=== PATIENT | female | born 1975 | race Caucasian/White ===

== ENCOUNTER 2019-02-04 14:47 | Emergency (ER) | payer OTHER ==
--- NOTE | 2019-02-04 14:53 | PDOC ---
Rapid Medical Evaluation Medical Evaluation: 02/04/19 14:50 I have performed a brief in-person evaluation of this patient. The patient presents with a chief complaint of: insect bite to L arm 2 nights ago, subjective fever, BAL[place], denies N/V/D Pertinent physical exam findings: warmth, erythema,tenderness, induration to L upper arm I have ordered the following: labs The patient will proceed to the ED for further evaluation. Discharge Disposition - Diagnosis Cellulitis - Referrals - Patient Instructions - Post Discharge Activity
[2019-02-04 14:56] VITALS: BP 103/72; PULSE 77; TEMP 98; BMI 32.3
[2019-02-04 15:55] LABS: BASO % 0.2 % (0-2.0); EOS % 1.8 % (0-4.5); HEMATOCRIT 37.4 % (32.4-45.2); HEMOGLOBIN 11.8 GM/dL (10.7-15.3); LYMPH % 50.9 % (8-40); MCH 22.5 pg (25.7-33.7); MCHC 31.5 g/dl (32.0-36.0); MEAN CELL VOLUME 71.2 fl (80-96); MONO % 5.8 % (3.8-10.2); NEUT % 41.3 % (42.8-82.8); PLATELET COUNT 253 K/MM3 (134-434); RBC 5.25 M/mm3 (3.60-5.2)
[2019-02-04 16:21] LABS: ALBUMIN 3.6 g/dl (3.4-5.0); BILIRUBIN,TOTAL 0.2 mg/dL (0.2-1); BLOOD UREA NITROGEN 9.3 mg/dL (7-18); CALCIUM 8.8 mg/dL (8.5-10.1); POTASSIUM 3.9 mmol/L (3.5-5.1); TOT PROT 7.1 g/dl (6.4-8.2)
[2019-02-04] MEDS ORDERED: ACETAMINOPHEN 500 MG TABLET (FP) PO ONE (17:34)
[2019-02-04] MEDS ORDERED: CEPHALEXIN MONOHYDRATE 500 MG CAPSULE (UD) PO ONE (17:37)
--- NOTE | 2019-02-04 17:39 | PDOC ---
Attending Attestation - Resident Resident Name: Antony Barker - ED Attending Attestation I have performed the following: I have examined & evaluated the patient, The case was reviewed & discussed with the resident, I agree w/resident's findings & plan, Exceptions are as noted - HPI HPI: 02/04/19 17:37 43 F with no PMH presents to ED with L upper arm redness and swelling. Pt states that 2 nights ago, she got bitten twice by an insect. She does not know what the insect was. Over the past day, she noticed increased redness, swelling , and pain. Denies any drainage. Pt endorses subjective fevers and chills. Denies any other complaints. - Physicial Exam PE: 02/04/19 17:38 "GENERAL: Awake, alert, and fully oriented, in no acute distress. HEAD: No signs of trauma EYES: PERRLA, EOMI, sclera anicteric, conjunctiva clear ENT: Auricles normal inspection, hearing grossly normal, nares patent, oropharynx clear without exudates. Moist mucosa NECK: Nontender, no stepoffs, Normal ROM, supple, no lymphadenopathy, JVD, or masses LUNGS: Breath sounds equal, clear to auscultation bilaterally. No wheezes, and no crackles HEART: Regular rate and rhythm, normal S1 and S2, no murmurs, rubs or gallops ABDOMEN: Soft, nontender, normoactive bowel sounds. No guarding, no rebound. No masses EXTREMITIES: Normal range of motion, no edema. No clubbing or cyanosis. No cords, erythema, or tenderness NEUROLOGICAL: Cranial nerves II through XII intact. 5/5 strength and sensation in all extremities, Normal speech, normal gait, normal cerebellar function SKIN: + 5cm area of induration and erythema with 2 punctate bites on L upper arm , no fluctuance, no drainage - Medical Decision Making 02/04/19 17:38 43 F with cellulitis of L upper arm, possibly superinfected insect bite. Pt with no fever in ED. - labs wnl - Keflex for cellulitis - Wound check in 48 hours Pt is well appearing, with normal vitals. Clinically stable for DC at this time. I discussed the physical exam findings, ancillary test results and final diagnoses with the patient. I answered all of the patient's questions. The patient was satisfied with the care received and felt comfortable with the discharge plan and treatment plan. The patient agrees to follow up with the primary care physician within 24-72 hours.
--- NOTE | 2019-02-04 17:45 | PDOC ---
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 Believes she was bitten by an unknown mosquito while sitting outside. Endorses subjective fevers and chills with diffuse headache. The area of redness as slowly spread and she has observed white discharge from the area. Denies h/o of similar. Has not tried any OTC meds for relief. Medical Hx: - Gastric ulcer, managed with Amoxicillin (not taken in the past several days) and Omeprazole Review of Systems: In addition to that documented in the HPI above, the additional ROS was obtained : Constitutional: Endorses fevers and chills ENMT: Denies sore throat CV: Denies chest pain Resp: Denies SOB GI: Denies vomiting or diarrhea : Denies dysuria, hematuria, or urinary frequency Physical Examination: Constitutional: Well-developed, well-nourished adult female in no acute distress or obvious discomfort. Found supine on hospital hallway stretcher. Head: Normocephalic. No obvious external signs of trauma. Cardiovascular / Chest: Regular rate and regular rhythm. No murmur, rubs, clicks , or gallops. Peripheral pulses: radial pulses full. Respiratory: Breathing unlabored. Equal chest rise and fall. Clear to auscultation bilaterally. No stridor, no wheezing, no rhonchi. Neuro: Alert and oriented x4. Moving all four extremities spontaneously. Skin: Tender and erythematous patch to lateral aspect of the left upper extremity. No central clearing or targetoid lesion. Unable to express purulence. No fluctuance or induration. No streaking. Lymphatics: No axillary lymphadenopathy. Psych: Affect: appropriate. Mood: normal. MDM: *Reviewed vital signs, nursing notes, and prior visit documentation (if available). 43 y/o female presenting with skin lesion suspicious for erysipelas. Low suspicion for MRSA without purulent discharge or other risk factors. Afebrile. Vitals unremarkable for hypotension or tachycardia. Low suspicion for septicemia or necrotizing fasciitis. Ordered Tylenol for headache and Keflex for infection. Marked area. Will prescribe 10 day course of Keflex. Discussed strict return precautions. Encouraged pt to f/u w/ PCP or return to ED in two days for a wound recheck. Antony Barker M.D., PGY2 Emergency Medicine Resident Past History - Past Medical History Allergies/Adverse Reactions: Allergies Allergy/AdvReac Type Severity Reaction Status Date / Time No Known Allergies Allergy Verified 02/04/19 14:56 Home Medications: Ambulatory Orders Cephalexin Monohydrate [Keflex -] 500 mg PO QID 10 Days #40 capsule 02/04/19 COPD: No - Suicide/Smoking/Psychosocial Hx Smoking History: Never smoked Information on smoking cessation initiated: No Hx Alcohol Use: No Drug/Substance Use Hx: No *Physical Exam - Vital Signs Last Vital Signs Temp Pulse Resp BP Pulse Ox 98 F 77 19 103/72 98 02/04/19 14:53 02/04/19 14:53 02/04/19 14:53 02/04/19 14:53 02/04/19 14:53 ED Treatment Course - LABORATORY CBC & Chemistry Diagram: 02/04/19 15:28 02/04/19 15:28 - ADDITIONAL ORDERS Additional order review: Laboratory Results 02/04/19 15:28 Sodium 140 Potassium 3.9 Chloride 103 Carbon Dioxide 28 Anion Gap 9 BUN 9.3 Creatinine 1.0 Est GFR (CKD-EPI)AfAm 81.04 Est GFR (CKD-EPI)NonAf 69.92 Random Glucose 89 Calcium 8.8 Total Bilirubin 0.2 AST 13 L ALT 20 Alkaline Phosphatase 81 Total Protein 7.1 Albumin 3.6 02/04/19 15:28 RBC 5.25 H MCV 71.2 L MCHC 31.5 L RDW 21.0 H MPV 10.0 Neutrophils % 41.3 L Lymphocytes % 50.9 H Monocytes % 5.8 Eosinophils % 1.8 Basophils % 0.2 *DC/Admit/Observation/Transfer Diagnosis at time of Disposition: Erysipelas Cellulitis Qualifiers: Site of cellulitis: extremity Site of cellulitis of extremity: upper extremity Laterality: left Qualified Code(s): L03.114 - Cellulitis of left upper limb - Discharge Dispostion Disposition: HOME Condition at time of disposition: Good Decision to Admit order: No - Prescriptions Prescriptions: Cephalexin Monohydrate [Keflex -] 500 mg PO QID 10 Days #40 capsule - Referrals Schedule a call back: Wound Recheck Referrals: Seth Morris [Primary Care Provider] - - Patient Instructions Printed Discharge Instructions: DI for Erysipelas Additional Instructions: Lo vieron hoy por enrojecimiento y dolor en la parte superior del brazo danny. Es probable que sea aye infeccin de la piel. Le dieron Tylenol y un antibitico en el departamento de emergencias. El saadia fue delineada con el marcador. Si el enrojecimiento se mueve rpidamente fuera del saadia marcada, regrese al hospital lo ms rpido posible. He enviado aye receta para un antibitico llamado Keflex a tsang farmacia. Tmelo samira se indica en el prospecto. No exceda la dosis recomendada. Hoy te dieron aye pldora. [place] eve ms esta noche antes de acostarse. Puede codie Tylenol o Advil de venta ricardo segn sea necesario para el dolor y la fiebre. Tmelo samira se indica en el prospecto. No exceda la dosis recomendada. Camila un seguimiento con tsang mdico de atencin primaria o regrese al departamento de emergencias para volver a revisar el saadia en dos rose. Deber llamar para programar aye don en el consultorio de tsang mdico. Se adjunta aye copia de los resultados de hoy a antony paquete. Llvelo a la don para que tsang mdico pueda revisarlos. Dirjase al departamento de emergencias ms cercano si tsang afeccin empeora o siente que necesita aye evaluacin de emergencia adicional. You were seen today for redness and pain to your upper left arm. This is likely a skin infection. You were given Tylenol and an antibiotic in the emergency department. The area was outlined with the marker. If the redness moves outside of the marked area quickly, come back to the hospital as quickly as possible. I have sent a prescription for an antibiotic called Keflex to your pharmacy. Take as directed on the package insert. Do not exceed the recommended dosage. You were given one pill today. Take one more tonight before bed. You can take over the counter Tylenol or Advil as needed for pain and fever. Take as directed on the package insert. Do not exceed the recommended dosage. Follow up with your primary care doctor or come back to the emergency department to have the area rechecked in two days. You will need to call to make an appointment at your doctors office. A copy of todays results are attached to this packet. Take it to the appointment so your doctor can review them. Go to the nearest emergency department if your condition worsens or you feel like you need additional emergency evaluation. Print Language: MOLDOVAN - Post Discharge Activity Forms/Work/School Notes: Back to Work
[2019-02-04] MEDS ORDERED: ACETAMINOPHEN 325 MG TABLET (FP) ONE (17:51)
[2019-02-04] MEDS ORDERED: CEPHALEXIN MONOHYDRATE 500 MG CAPSULE (UD) ONE (17:52)
[2019-02-04 18:42] LABS: ANISOCYTOSIS 1+; MACROCYTOSIS 0; OVALOCYTE 1+; PLATELET ESTIMATE NORMAL; TEAR DROP CELLS 1+
== END 2019-02-04 18:05 | disposition home or self-care (01) ==
LOC: JER 14:47 → EDBD 14:47 → JER 18:05
DX: A46 Erysipelas (principal); L03.114 Cellulitis of left upper limb
CPT/HCPCS: 36415; 80053; 85025; 99281-25

== ENCOUNTER 2019-05-20 19:11 | Emergency (ER) | payer OTHER ==
[2019-05-20] MEDS ORDERED: diphenhydrAMINE HCL 25 MG CAPSULE (FP) PO ONE ×2 (19:26→20:43)
--- NOTE | 2019-05-20 19:26 | PDOC ---
Rapid Medical Evaluation Medical Evaluation: Allergies Allergy/AdvReac Type Severity Reaction Status Date / Time No Known Allergies Allergy Verified 02/04/19 14:56 I have performed a brief in-person evaluation of this patient. The patient presents with a chief complaint of: itching along LUE and R thigh x 4 days; possibly bit by something but not sure what Pertinent physical exam findings: +L upper arm erythema and warmth; no induration or fluctuance; R thigh not examined in triage I have ordered the following: Benadryl The patient will proceed to the ED for further evaluation. 05/20/19 19:23
[2019-05-20 19:52] VITALS: BP 115/67; PULSE 85; TEMP 97.4; BMI 33.9
[2019-05-20] MEDS ORDERED: IBUPROFEN 600 MG TABLET (FP) PO ONE ×2 (20:47→20:48)
[2019-05-20] MEDS ORDERED: SULFAMETHOXAZOLE/TRIMETHOPRIM 800MG/160MG D.S. TABLET PO ONE (20:48)
[2019-05-20] MEDS ORDERED: CEPHALEXIN MONOHYDRATE 500 MG CAPSULE (UD) PO ONE (20:48)
[2019-05-20] MEDS ORDERED: CEPHALEXIN MONOHYDRATE 500 MG CAPSULE (UD) ONE (20:49)
[2019-05-20] MEDS ORDERED: SULFAMETHOXAZOLE/TRIMETHOPRIM 800MG/160MG D.S. TABLET ONE (20:49)
--- NOTE | 2019-05-20 20:53 | PDOC ---
History of Present Illness - General Chief Complaint: Bite Stated Complaint: LEFT ARM DISCOMFORT/EVALUATION Time Seen by Provider: 05/20/19 19:23 - History of Present Illness Initial Comments: 05/20/19 20:48 43-year-old female without comorbidities presents for left arm redness x2 days with out fever at home but chills and night sweats at times Past History - Past Medical History Allergies/Adverse Reactions: Allergies Allergy/AdvReac Type Severity Reaction Status Date / Time No Known Allergies Allergy Verified 02/04/19 14:56 Home Medications: Ambulatory Orders Cephalexin Monohydrate [Keflex -] 500 mg PO QID 10 Days #40 capsule 02/04/19 Cephalexin [Keflex] 500 mg PO QID #40 capsule 05/20/19 Sulfamethoxazole/Trimethoprim [Bactrim Ds -] 1 tab PO BID #14 tablet 05/20/19 COPD: No - Psycho Social/Smoking Cessation Hx Smoking History: Never smoked Have you smoked in the past 12 months: No Information on smoking cessation initiated: No Hx Alcohol Use: No Drug/Substance Use Hx: No Review of Systems - Review of Systems Constitutional: Yes: Chills, Malaise, Night Sweats. No: Fever Integumentary: Yes: Erythema *Physical Exam - Vital Signs Last Vital Signs Temp Pulse Resp BP Pulse Ox 97.4 F L 85 17 115/67 98 05/20/19 19:15 05/20/19 19:15 05/20/19 19:15 05/20/19 19:15 05/20/19 19:15 - Physical Exam 05/20/19 20:49 There is erythema and induration on the superior lateral aspect of the left upper extremity. The area was outlined. There is no areas of fluctuance. Mild sensitivity ED Treatment Course - Medications Given in the ED: ED Medications Discontinued Medications Generic Name Dose Route Start Last Admin Trade Name Freq PRN Reason Stop Dose Admin Diphenhydramine HCl 50 mg 05/20/19 19:26 05/20/19 20:40 Benadryl - PO 05/20/19 19:27 50 mg ONCE ONE Administration Medical Decision Making - Medical Decision Making 05/20/19 20:52 We will treat with Bactrim and Keflex. First dose given in the emergency room tonight Motrin for pain. Follow-up with primary care physician Discharge - Discharge Information Problems reviewed: Yes Clinical Impression/Diagnosis: Cellulitis Condition: Stable Disposition: HOME - Admission No - Additional Discharge Information Prescriptions: Cephalexin [Keflex] 500 mg PO QID #40 capsule Sulfamethoxazole/Trimethoprim [Bactrim Ds -] 1 tab PO BID #14 tablet - Follow up/Referral Referrals: Jerry Viera MD [Staff Physician] - - Patient Discharge Instructions Patient Printed Discharge Instructions: Cellulitis, DI for Cellulitis -- Adult Additional Instructions: Tylenol and Motrin as directed for pain. Please take the antibiotics as directed and finish the entire course. Return to the emergency room for any redness outside the outlined areas. Follow-up with your primary care physician in 2 to 3 days for further evaluation and treatment options without fail. - Post Discharge Activity
== END 2019-05-20 21:16 | disposition home or self-care (01) ==
LOC: JERFT 19:11
DX: L03.114 Cellulitis of left upper limb (principal)
CPT/HCPCS: 99281-25

== ENCOUNTER 2019-06-07 18:06 | Emergency (ER) | payer OTHER ==
[2019-06-07 19:31] VITALS: BP 106/77; PULSE 69; TEMP 98.8; BMI 19.8
--- NOTE | 2019-06-07 21:08 | PDOC ---
History of Present Illness - General Chief Complaint: Cold Symptoms Stated Complaint: Cold Symptoms Time Seen by Provider: 06/07/19 20:37 History Source: Patient Exam Limitations: No Limitations - History of Present Illness Initial Comments: 06/07/19 21:03 HISTORY OF PRESENT ILLNESS: 43-year-old woman who denies medical history presents emergency department for evaluation of 2 days of fevers, chills, headache, moist cough, sore throat, body aches and burning sensation behind her eyes. She denies any sick contacts. Patient works as a cook in a restaurant and states other people are not experiencing symptoms. Patient is afebrile here but took Tylenol prior to arrival. No recent travel or sick contacts. PAST MEDICAL HISTORY: Denies past medical history SURGICAL HISTORY: Denies ALLERGIES: No known drug allergies REVIEW OF SYSTEMS General/Constitutional: +fever. Denies weakness, weight change. HEENT: Denies change in vision. Denies ear pain or discharge. +sore throat. Cardiovascular: Denies chest pain or shortness of breath. Respiratory: Moist productive cough. Denies wheezing, or hemoptysis. Gastrointestinal: Denies nausea, vomiting, diarrhea or constipation. Denies rectal bleeding. Genitourinary: Denies dysuria, frequency, or change in urination. Musculoskeletal: +myalgias. Denies neck or back pain. Skin and breasts: Denies rash or easy bruising. Neurologic: Denies headache, vertigo, loss of consciousness, or loss of sensation. Psychiatric: Denies depression or anxiety. Endocrine: Denies increased thirst. Denies abnormal weight change. Hematologic/Lymphatic: Denies anemia, easy bleeding, or history of blood clots. Allergic/Immunologic: Denies hives or skin allergy. Denies latex allergy. PHYSICAL EXAM General Appearance: Well-appearing, appropriately dressed. No apparent distress , no intoxication. HEENT: EOMI, PERRLA, normal voice, TMs retracted bilaterally. No conjunctival pallor. No photophobia, scleral icterus. Oropharynx erythematous without lesions or exudate. Cobblestoning noted in the posterior. No nasal discharge present. Neck: Supple. Trachea midline. No tenderness, rigidity, carotid bruit, stridor , or thyromegaly. Nontender anterior cervical lymphadenopathy present. Respiratory/Chest: Lungs CTAB. No shortness of breath, chest tenderness, respiratory distress, accessory muscle use. No crackles, rales, rhonchi, stridor , wheezing, dullness Cardiovascular: RRR. S1, S2. No JVD, murmur, bradycardia, tachycardia. Vascular Pulses: Dorsalis-Pedis (R): 2+, Dorsalis-Pedis (L): 2+ Gastrointestinal/Abdominal: Normal bowel sounds. Abdomen soft, non-distended. No tenderness or rebound tenderness. No organomegaly, pulsatile mass, guarding, hernia, hepatomegaly, splenomegaly. Musculoskeletal/Extremities: Normal inspection. FROM of all extremities, normal capillary refill. Pelvis Stable. No CVA tenderness. No tenderness to extremities, pedal edema, swelling, erythema or deformity. Integumentary: Appropriate color, dry, warm. No cyanosis, erythema, jaundice or rash Neurologic: hot pipe gauger II-XII intact. Fully oriented, alert. Appropriate mood/affect. Motor strength 5/5. No appreciable EOM palsy, facial droop or sensory deficit. 06/07/19 21:07 Past History - Past Medical History Allergies/Adverse Reactions: Allergies Allergy/AdvReac Type Severity Reaction Status Date / Time No Known Allergies Allergy Verified 06/07/19 20:33 Home Medications: Ambulatory Orders Cephalexin Monohydrate [Keflex -] 500 mg PO QID 10 Days #40 capsule 02/04/19 Cephalexin [Keflex] 500 mg PO QID #40 capsule 05/20/19 Sulfamethoxazole/Trimethoprim [Bactrim Ds -] 1 tab PO BID #14 tablet 05/20/19 Oseltamivir Phosphate [Tamiflu -] 75 mg PO BID #10 capsule 06/07/19 COPD: No - Psycho Social/Smoking Cessation Hx Smoking History: Never smoked Have you smoked in the past 12 months: No Information on smoking cessation initiated: No Hx Alcohol Use: No Drug/Substance Use Hx: No *Physical Exam - Vital Signs Last Vital Signs Temp Pulse Resp BP Pulse Ox 98.8 F 69 17 106/77 100 06/07/19 19:22 06/07/19 19:22 06/07/19 19:22 06/07/19 19:22 06/07/19 19:22 Medical Decision Making - Medical Decision Making 06/07/19 21:04 A/P: 43-year-old woman with 2 days of flulike symptoms As physical exam is consistent with influenza I have offered potential treatment of influenza to patient. Side effects of Tamiflu been explained to the patient and patient chooses to receive Tamiflu treatment. I discussed the physical exam findings, ancillary test results and final diagnoses with the patient. I answered all of the patient's questions. The patient was satisfied with the care received and felt comfortable with the discharge plan and treatment plan. The patient will call their primary care physician within 24 hours to arrange follow-up and will return to the Emergency Department with any new, persistent or worsening symptoms. Discharge - Discharge Information Problems reviewed: Yes Clinical Impression/Diagnosis: Influenza-like illness Condition: Stable Disposition: HOME - Admission No - Additional Discharge Information Prescriptions: Oseltamivir Phosphate [Tamiflu -] 75 mg PO BID #10 capsule - Follow up/Referral Referrals: Seth Morris [Primary Care Provider] - - Patient Discharge Instructions Additional Instructions: Rest, drink lots of fluids: Teas, water, soups, Pedialyte Saltwater gargles Steamy showers/seem to face break up mucus Old-fashioned treatments help! Avoid contact with others until fevers and cough resolved as this is very contagious Lots of handwashing and good hygiene Continue pejo-iqh-jeulerc medications for symptomatic relief Tylenol or Motrin for fever and pain Take all of Tamiflu as directed: 1 tab every 12 hours for 5 days Followup with private physician in one to 2 days as needed or if worsening Return to emergency department for worsened symptoms, fevers, dehydration Influenza takes between 5 and 7 days for resolution Do not participate in any activity, work, or school until fevers and cough are gone for at least one day Descaishaarbenjamin muchos lquidos: ts, agua, sopas, pedialyte Gargles de agua salada Duchas vaporosas/parecen enfrentar la ruptura de moco Los tratamientos anticuados ayudan! Evite el contacto con otras personas hasta que la fiebre y la tos se resuelvan, ya que esto es muy contagioso Mucho lavado de vikash y buena higiene Continuar con los medicamentos de venta ricardo para aliviar sintomticamente Tylenol o Motrin para la fiebre y el dolor [place] toda Tamiflu samira se indica: 1 pestaa cada 12 horas raulito 5 rose Seguimiento con el mdico privado en eve a 2 rose segn sea necesario o si empeora Regreso al servicio de urgencias para empeorar los sntomas, fiebres, deshidratacin La gripe tarda entre 5 y 7 rose en resolverse No participe en ninguna actividad, trabajo o escuela hasta que la fiebre y la tos se hayan maryanne por lo menos un da - Post Discharge Activity Work/Back to School Note: Back to Work
== END 2019-06-07 21:12 | disposition home or self-care (01) ==
LOC: JERFT 18:06
DX: J11.1 Influenza due to unidentified influenza virus with other respiratory manifestations (principal)
CPT/HCPCS: 99282-25

== ENCOUNTER 2019-07-04 19:54 | Emergency (ER) | payer OTHER ==
[2019-07-04 20:00] VITALS: BP 127/79; PULSE 78; TEMP 98.3; BMI 33.9
--- NOTE | 2019-07-04 20:00 | PDOC ---
Rapid Medical Evaluation Time Seen by Provider: 07/04/19 19:58 Medical Evaluation: Allergies Allergy/AdvReac Type Severity Reaction Status Date / Time No Known Allergies Allergy Verified 06/07/19 20:33 07/04/19 19:59 CC: lower abdominal pain with vaginal d/c. LMP-06/12/19 PE: deferred Orders: urine Patient will proceed to ED for continued evaluation. 07/04/19 20:00 Discharge Disposition - Diagnosis Vaginal discharge - Referrals - Patient Instructions - Post Discharge Activity
--- NOTE | 2019-07-04 22:13 | PDOC ---
History of Present Illness - General Chief Complaint: Vaginal Sxs Stated Complaint: LOWER ABD/PAIN Time Seen by Provider: 07/04/19 19:58 History Source: Patient - History of Present Illness Initial Comments: 07/04/19 22:36 Chief complaint: Vaginal discharge and pelvic pain Patient is a healthy 43-year-old female, who is had 4 children is complaining of a week of pelvic pain and vaginal discharge. No fever, no dysuria. Patient is sexually active with her . Patient saw her side stitcher in May because of her instruction is supposed to follow-up in July. GENERAL/CONSTITUTIONAL: No fever, weakness. dizziness HEAD, EYES, EARS, NOSE AND THROAT: No change in vision. No ear pain or discharge. No sore throat. CARDIOVASCULAR: No chest pain RESPIRATORY: No shortness of breath or cough GASTROINTESTINAL: No pain, nausea, vomiting, diarrhea or constipation GENITOURINARY: No dysuria, + vaginal discharge and pelvic pain MUSCULOSKELETAL: No neck or back pain SKIN: No rash NEUROLOGIC: No headache, vertigo, loss of consciousness, or loss of sensation. GENERAL: The patient is awake, alert, and fully oriented, in no acute distress. HEAD: Normal with no signs of trauma. EYES: Pupils equal, round and reactive to light, sclera anicteric, conjunctiva clear. ENT: pharynx: no erythema, no exudate, uvula midline NECK: supple CHEST: clear, nontender, rr ABD: soft, +pelvic tenderness PELVIC: External exam normal, some white discharge, very nonspecific, non-itchy in the vagina, patient has no CMT but has suprapubic and right adnexal tenderness. BACK: no tenderness or signs of injury EXTREMITIES: Normal range of motion, no edema. NEUROLOGICAL: Normal speech, normal gait. SKIN: Warm, Dry Past History - Past Medical History Allergies/Adverse Reactions: Allergies Allergy/AdvReac Type Severity Reaction Status Date / Time No Known Allergies Allergy Verified 07/04/19 20:00 Home Medications: Ambulatory Orders Cephalexin Monohydrate [Keflex -] 500 mg PO QID 10 Days #40 capsule 02/04/19 Cephalexin [Keflex] 500 mg PO QID #40 capsule 05/20/19 Sulfamethoxazole/Trimethoprim [Bactrim Ds -] 1 tab PO BID #14 tablet 05/20/19 Oseltamivir Phosphate [Tamiflu -] 75 mg PO BID #10 capsule 06/07/19 COPD: No - Psycho Social/Smoking Cessation Hx Smoking History: Never smoked Have you smoked in the past 12 months: No Hx Alcohol Use: No Drug/Substance Use Hx: No *Physical Exam - Vital Signs Last Vital Signs Temp Pulse Resp BP Pulse Ox 98.3 F 78 18 127/79 99 07/04/19 19:57 07/04/19 19:57 07/04/19 19:57 07/04/19 19:57 07/04/19 19:57 Medical Decision Making - Medical Decision Making 07/04/19 22:41 43-year-old female complaining of vaginal discharge and pelvic pain for 1 week, no dysuria, fever, nausea, vomiting, patient states she had a normal. Towards the end of May. She also saw her side stitcher regarding her period in May and supposed to have a follow-up in July. Patient did not have CMT but she had suprapubic and right adnexal tenderness. UA was negative, is negative. STDs were sent. Patient will get ultrasound to be reassessed. Patient signed out to LAYO Vega 07/04/19 22:42 Discharge - Discharge Information Problems reviewed: Yes Clinical Impression/Diagnosis: Vaginal discharge Condition: Stable Disposition: HOME - Follow up/Referral Referrals: Verenice Rivera [Primary Care Provider] - - Patient Discharge Instructions Patient Printed Discharge Instructions: DI for Ovarian Cyst, DI for Vaginal Discharge Additional Instructions: Please call your INFECTION CONTROL PRACTITIONER doctor in the morning and see them as soon as possible, present the Ultrasound report to the Doctor. Return to the ER for new or concerning symptoms including but not limited to: severe pain, bloody vaginal discharge. Continue taking your home dosed medications as prescribed. Thank you - Post Discharge Activity
[2019-07-04 22:34] LABS: URINE APPEARANCE CLEAR; URINE BILIRUBIN NEGATIVE (NEGATIVE); URINE COLOR YELLOW; URINE GLUCOSE (UA) NEGATIVE (NEGATIVE); URINE KETONE NEGATIVE (NEGATIVE); URINE LEUK ESTERASE NEGATIVE (NEGATIVE); URINE NITRITE NEGATIVE (NEGATIVE); URINE PROTEIN NEGATIVE (NEGATIVE); URINE UROBILINOGEN 0.2 mg/dL (0.2-1.0)
--- NOTE | 2019-07-05 03:47 | PDOC ---
*Physical Exam - Vital Signs Last Vital Signs Temp Pulse Resp BP Pulse Ox 98.3 F 78 18 127/79 99 07/04/19 19:57 07/04/19 19:57 07/04/19 19:57 07/04/19 19:57 07/04/19 19:57 ED Treatment Course - ADDITIONAL ORDERS Additional order review: Laboratory Results 07/04/19 07/04/19 22:20 22:20 Urine Color Yellow Urine Appearance Clear Urine pH 7.0 Ur Specific Benson 1.015 Urine Protein Negative Urine Glucose (UA) Negative Urine Ketones Negative Urine Blood Negative Urine Nitrite Negative Urine Bilirubin Negative Urine Urobilinogen 0.2 Ur Leukocyte Esterase Negative Urine HCG, Qual Negative Medical Decision Making - Medical Decision Making 07/05/19 03:36 Pt not signed out to me or attending in the main ED. Pt apparently a fast track pt Pt came up to main desk stating no one gave her results of imaging. Dr. Mckeon and I investigated chart through pt wrist band with the MRN, found note: (43-year-old female complaining of vaginal discharge and pelvic pain for 1 week , no dysuria, fever, nausea, vomiting, patient states she had a normal. Towards the end of May. She also saw her fire protection engineer regarding her period in May and supposed to have a follow-up in July. Patient did not have CMT but she had suprapubic and right adnexal tenderness. UA was negative, is negative. STDs were sent. Patient will get ultrasound to be reassessed. Patient signed out to LAYO Vega) Imaging done showing possible complex cyst that may require MRI UA neg, pending gc/chlam Resident Thomas Discussed case with Dr. Durand in full, tubular riveter warp tension tester, states pt is safe for DC with outpatient f/u pt has OB and will call to make an appointment Discharge - Discharge Information Problems reviewed: Yes Clinical Impression/Diagnosis: Vaginal discharge Condition: Stable Disposition: HOME - Admission No - Follow up/Referral Referrals: Verenice Rivera [Primary Care Provider] - - Patient Discharge Instructions Patient Printed Discharge Instructions: DI for Vaginal Discharge, DI for Ovarian Cyst Additional Instructions: Please call your POLICE CRIME SCENE TECHNICIAN doctor in the morning and see them as soon as possible, present the Ultrasound report to the Doctor. Return to the ER for new or concerning symptoms including but not limited to: severe pain, bloody vaginal discharge. Continue taking your home dosed medications as prescribed. Thank you - Post Discharge Activity
== END 2019-07-06 04:00 | disposition home or self-care (01) ==
LOC: JERFT 19:54
DX: N89.8 Other specified noninflammatory disorders of vagina (principal); N83.201 Unspecified ovarian cyst, right side; D25.9 Leiomyoma of uterus, unspecified
CPT/HCPCS: 36415; 76830-TC; 81003; 84703; 87086; 87491; 87591; 99284-25

== ENCOUNTER 2020-07-17 02:21 | Emergency (ER) | payer OTHER ==
[2020-07-17 03:13] VITALS: BMI 37.8
[2020-07-17] MEDS ORDERED: ACETAMINOPHEN 325 MG TABLET (FP) PO ONE (03:33)
[2020-07-17] MEDS ORDERED: ACETAMINOPHEN 325 MG TABLET (FP) ONE (03:42)
[2020-07-17 04:29] LABS: CHLORIDE 108 mmol/L (98-107); INR 0.93 (0.83-1.09); POTASSIUM 4.4 mmol/L (3.5-5.1); PROTHROMBIN TIME (PATIENT) 11.5 SEC (9.7-13.0); SODIUM 143 mmol/L (136-145)
[2020-07-17 04:31] LABS: ALBUMIN 3.6 g/dl (3.4-5.0); ANION GAP 6 MMOL/L (8-16); BLOOD UREA NITROGEN 14.2 mg/dL (7-18); CALCIUM 8.6 mg/dL (8.5-10.1); CO2 28 mmol/L (21-32); GLUCOSE,RANDOM 105 mg/dL (74-106)
[2020-07-17 04:32] LABS: ACTIVATED PTT 23.1 SECONDS (25.2-36.5)
[2020-07-17 04:34] LABS: SGOT/AST 13 U/L (15-37); SGPT/ALT 23 U/L (13-61)
[2020-07-17 04:35] LABS: BASO % 1.1 % (0-2.0); EOS % 0.9 % (0-4.5); HEMATOCRIT 39.9 % (32.4-45.2); HEMOGLOBIN 13.1 GM/dL (10.7-15.3); LYMPH % 44.2 % (8-40); MCH 25.7 pg (25.7-33.7); MCHC 32.9 g/dl (32.0-36.0); MEAN PLT VOLUME 10.2 fl (7.5-11.1); MONO % 5.9 % (3.8-10.2); NEUT % 47.9 % (42.8-82.8); PLATELET COUNT 210 K/MM3 (134-434); RBC 5.12 M/mm3 (3.60-5.2); RDW 16.3 % (11.6-15.6); WHITE BLOOD COUNT 7.1 K/mm3 (4.0-10.0)
[2020-07-17 04:36] LABS: BILIRUBIN,TOTAL 0.2 mg/dL (0.2-1); TOT PROT 7.3 g/dl (6.4-8.2)
[2020-07-17 04:37] LABS: ALK PHOS 83 U/L (45-117)
[2020-07-17] MEDS ORDERED: FAMOTIDINE 20 MG/50 ML IVPB 20 MG/50 ML MG IVPB ONE ×2 (05:04→05:11)
[2020-07-17] MEDS ORDERED: MAG HYDROX/AL HYDROX/SIMETH 30 ML UNIT-DOSE CUP PO ONE (05:05)
[2020-07-17] MEDS ORDERED: MAG HYDROX/AL HYDROX/SIMETH 30 ML UNIT-DOSE CUP ONE (05:11)
[2020-07-17] MEDS ORDERED: LIDOCAINE 5% TOPICAL PATCH TP ONE (05:26)
[2020-07-17] MEDS ORDERED: LIDOCAINE 5% TOPICAL PATCH ONE (05:27)
[2020-07-17] MEDS ORDERED: METOCLOPRAMIDE HCL INJECTION 10 MG/2 ML VIAL ONE (06:01)
[2020-07-17] MEDS ORDERED: METOCLOPRAMIDE HCL INJECTION 10 MG/2 ML VIAL IVPB ONE (06:07)
[2020-07-17 06:55] VITALS: BP 105/67; PULSE 69; TEMP 98.6
[2020-07-17] MEDS ORDERED: LIDOCAINE PATCH REMOVAL MC SCH (22:00)
== END 2020-07-17 06:55 | disposition home or self-care (01) ==
LOC: JER 02:21
PROC: 3E033GC Introduction of Other Therapeutic Substance into Peripheral Vein, Percutaneous Approach (ICD-10-PCS; principal; 2020-07-17)
DX: R07.9 Chest pain, unspecified (principal)
CPT/HCPCS: 36415; 71045-TC-FY; 80053; 84484; 84703; 85025; 85610; 85730; 87880; 93005; 93010; 99285-25; C9803; U0003

== ENCOUNTER 2020-10-01 02:28 | Emergency (ER) | payer OTHER ==
[2020-10-01 03:00] VITALS: BP 134/87; PULSE 76; TEMP 98.2; BMI 33.0
[2020-10-01] MEDS ORDERED: ACETAMINOPHEN 500 MG TABLET (FP) PO ONE (03:24)
[2020-10-01] MEDS ORDERED: ACETAMINOPHEN 325 MG TABLET (FP) ONE (03:54)
[2020-10-01 05:12] LABS: EOS % 1.5 % (0-4.5); HEMATOCRIT 36.2 % (32.4-45.2); LYMPH % 48.9 % (8-40); MCH 25.8 pg (25.7-33.7); MEAN CELL VOLUME 78.4 fl (80-96); MEAN PLT VOLUME 9.3 fl (7.5-11.1); MONO % 8.2 % (3.8-10.2); NEUT % 40.4 % (42.8-82.8); PLATELET COUNT 220 K/MM3 (134-434); RBC 4.63 M/mm3 (3.60-5.2); RDW 15.1 % (11.6-15.6); WHITE BLOOD COUNT 5.4 K/mm3 (4.0-10.0)
[2020-10-01 05:21] LABS: INR 1.06 (0.83-1.09); PROTHROMBIN TIME (PATIENT) 12.8 SEC (9.7-13.0)
[2020-10-01 05:23] LABS: ACTIVATED PTT 28.3 SECONDS (25.2-36.5)
[2020-10-01 05:25] LABS: CO2 29 mmol/L (21-32)
[2020-10-01 05:26] LABS: MAGNESIUM 1.9 mg/dL (1.8-2.4)
[2020-10-01 05:28] LABS: SGOT/AST 12 U/L (15-37); SGPT/ALT 20 U/L (13-61)
[2020-10-01 05:29] LABS: PHOSPHOROUS 3.8 mg/dL (2.5-4.9)
[2020-10-01 05:30] LABS: BILIRUBIN,TOTAL 0.2 mg/dL (0.2-1)
[2020-10-01 05:31] LABS: ALK PHOS 69 U/L (45-117)
[2020-10-01 05:31] LABS: EPI CELLS 20 /uL (0-25.1); HYALINE CASTS 0 /uL (0-3.1); PH,URINE 7.5 (5.0-8.0); URINE APPEARANCE CLEAR; URINE BACTERIA 1157 /uL (0-1359); URINE BILIRUBIN NEGATIVE (NEGATIVE); URINE COLOR YELLOW; URINE GLUCOSE (UA) NEGATIVE (NEGATIVE); URINE KETONE NEGATIVE (NEGATIVE); URINE LEUK ESTERASE NEGATIVE (NEGATIVE); URINE NITRITE NEGATIVE (NEGATIVE); URINE PROTEIN NEGATIVE (NEGATIVE); URINE RBC 5 /uL (0-23.9); URINE UROBILINOGEN 0.2 mg/dL (0.2-1.0); URINE WBC 14 /uL (0-25.8)
[2020-10-01 06:00] LABS: ALBUMIN 3.5 g/dl (3.4-5.0); ANION GAP 5 MMOL/L (8-16); CALCIUM 8.3 mg/dL (8.5-10.1); CHLORIDE 107 mmol/L (98-107); GLUCOSE,RANDOM 88 mg/dL (74-106); SODIUM 141 mmol/L (136-145); TOT PROT 6.8 g/dl (6.4-8.2)
== END 2020-10-01 10:06 | disposition home or self-care (01) ==
LOC: JER 02:28
DX: S20.219A Contusion of unspecified front wall of thorax, initial encounter (principal)
CPT/HCPCS: 36415; 70450-TC; 71260-TC; 72125-TC; 74177-TC; 80053; 81003; 82550; 83605; 83735; 84100; 84484; 84703; 85025; 85610; 85730; 87086; 93005; 93010; 99285-25; C9803; Q9967; U0003; U0005

== ENCOUNTER 2021-05-12 01:33 | Emergency (ER) | payer OTHER ==
[2021-05-12 02:12] VITALS: BP 115/77; PULSE 98; TEMP 98.6; BMI 39.9
[2021-05-12] MEDS ORDERED: ACETAMINOPHEN 500 MG TABLET (FP) PO ONE (02:16)
[2021-05-12] MEDS ORDERED: ACETAMINOPHEN 325 MG TABLET (FP) ONE (02:40)
[2021-05-15 13:07] LABS: SARS-CoV-2 NAA Detected (Not Detected)
== END 2021-05-12 04:46 | disposition home or self-care (01) ==
LOC: JER 01:33
DX: R51.9 Headache, unspecified (principal); M79.10 Myalgia, unspecified site
CPT/HCPCS: 87804; 99283-25; C9803-CS; U0003; U0005

== ENCOUNTER 2022-01-16 20:34 | Emergency (ER) | payer OTHER ==
[2022-01-16 20:52] VITALS: BP 111/79; PULSE 73; RESP 19; TEMP 98; BMI 32.3
[2022-01-16] MEDS ORDERED: CEPHALEXIN MONOHYDRATE 500 MG CAPSULE (UD) PO ONE (22:25)
[2022-01-16] MEDS ORDERED: diphenhydrAMINE HCL 25 MG CAPSULE (FP) PO ONE ×2 (22:25→22:28)
[2022-01-16] MEDS ORDERED: CEPHALEXIN MONOHYDRATE 500 MG CAPSULE (UD) ONE (22:28)
== END 2022-01-16 22:46 | disposition home or self-care (01) ==
LOC: JERFT 20:34
DX: L03.116 Cellulitis of left lower limb (principal)
CPT/HCPCS: 99283-25

== ENCOUNTER 2022-03-10 23:23 | Emergency (ER) | payer OTHER ==
[2022-03-10 23:31] VITALS: BP 102/60; PULSE 65; RESP 17; TEMP 98.4; BMI 34.7
[2022-03-11] MEDS ORDERED: KETOROLAC TROMETHAMINE 15 MG/ML VIAL IVPUSH ONE (01:34)
[2022-03-11 02:06] LABS: EOS % 1.4 % (0-4.5); HEMOGLOBIN 12.4 GM/dL (10.7-15.3); LYMPH % 43.6 % (8-40); MCH 25.2 pg (25.7-33.7); MCHC 32.6 g/dl (32.0-36.0); MEAN CELL VOLUME 77.4 fl (80-96); MEAN PLT VOLUME 9.1 fl (7.5-11.1); MONO % 5.7 % (3.8-10.2); NEUT % 48.3 % (42.8-82.8); PLATELET COUNT 254 10^3/uL (134-434); RBC 4.91 M/mm3 (3.60-5.2); RDW 15.8 % (11.6-15.6); WHITE BLOOD COUNT 5.3 K/mm3 (4.0-10.0)
[2022-03-11] MEDS ORDERED: KETOROLAC TROMETHAMINE 15 MG/ML VIAL ONE (02:10)
[2022-03-11 02:34] LABS: SODIUM 143 mmol/L (136-145)
[2022-03-11 02:35] LABS: ALBUMIN 3.6 g/dl (3.4-5.0); CALCIUM 9.3 mg/dL (8.5-10.1); CO2 29 mmol/L (21-32); GLUCOSE,RANDOM 100 mg/dL (74-106)
[2022-03-11 02:37] LABS: BLOOD UREA NITROGEN 17.2 mg/dL (7-18)
[2022-03-11 02:39] LABS: CREATININE 0.9 mg/dL (0.55-1.3); SGOT/AST 18 U/L (15-37)
[2022-03-11 02:40] LABS: SGPT/ALT 23 U/L (13-61)
[2022-03-11 02:41] LABS: BILIRUBIN,TOTAL 0.2 mg/dL (0.2-1); TOT PROT 7.1 g/dl (6.4-8.2)
[2022-03-11 02:42] LABS: ALK PHOS 71 U/L (45-117)
[2022-03-11 03:26] LABS: ANION GAP 6 MMOL/L (8-16); CHLORIDE 107 mmol/L (98-107)
== END 2022-03-11 03:34 | disposition home or self-care (01) ==
LOC: JER 23:23
PROC: 3E033GC Introduction of Other Therapeutic Substance into Peripheral Vein, Percutaneous Approach (ICD-10-PCS; principal; 2022-03-10)
DX: R07.9 Chest pain, unspecified (principal)
CPT/HCPCS: 36415; 71046-TC-FY; 80053; 84484; 84703; 85025; 93005; 93010; 99285-25

== ENCOUNTER 2022-05-13 23:21 | Emergency (ER) | payer OTHER ==
[2022-05-13 23:51] VITALS: BP 124/71; PULSE 74; RESP 18; TEMP 98.7; BMI 34.7
[2022-05-14] MEDS ORDERED: LORazepam 2 MG TABLET PO ONE (00:15)
[2022-05-14] MEDS ORDERED: ACETAMINOPHEN 325 MG TABLET (FP) PO ONE (00:28)
[2022-05-14] MEDS ORDERED: IBUPROFEN 600 MG TABLET (FP) PO ONE ×2 (00:28→00:34)
[2022-05-14] MEDS ORDERED: ACETAMINOPHEN 325 MG TABLET (FP) ONE (00:35)
[2022-05-14] MEDS ORDERED: LIDOCAINE 5% TOPICAL PATCH TP ONE (00:36)
[2022-05-14] MEDS ORDERED: LIDOCAINE 5% TOPICAL PATCH ONE (00:38)
[2022-05-14] MEDS ORDERED: LIDOCAINE PATCH REMOVAL MC ONE (13:00)
== END 2022-05-14 04:28 | disposition home or self-care (01) ==
LOC: JER 23:21
DX: M19.071 Primary osteoarthritis, right ankle and foot (principal)
CPT/HCPCS: 73564-TC-RT-FY; 73610-TC-RT-FY; 73630-TC-RT-FY; 99284-25

== ENCOUNTER 2022-07-17 16:50 | Emergency (ER) | payer OTHER ==
[2022-07-17 16:58] VITALS: RESP 18; TEMP 97.7; BMI 40.3
[2022-07-17 18:48] LABS: BASO % 1.2 % (0-2.0); EOS % 1.4 % (0-4.5); HEMATOCRIT 37.8 % (32.4-45.2); HEMOGLOBIN 12.2 GM/dL (10.7-15.3); LYMPH % 47.9 % (8-40); MCH 24.5 pg (25.7-33.7); MCHC 32.4 g/dl (32.0-36.0); MEAN CELL VOLUME 75.6 fl (80-96); MEAN PLT VOLUME 9.1 fl (7.5-11.1); MONO % 5.2 % (3.8-10.2); NEUT % 44.3 % (42.8-82.8); PLATELET COUNT 276 10^3/uL (134-434); RDW 15.1 % (11.6-15.6); WHITE BLOOD COUNT 4.6 K/mm3 (4.0-10.0)
[2022-07-17 19:10] LABS: ALBUMIN 3.7 g/dl (3.4-5.0); BLOOD UREA NITROGEN 10.4 mg/dL (7-18); CO2 29 mmol/L (21-32); GLUCOSE,RANDOM 93 mg/dL (74-106)
[2022-07-17 19:11] LABS: ANION GAP 6 MMOL/L (8-16); CHLORIDE 106 mmol/L (98-107); SODIUM 141 mmol/L (136-145)
[2022-07-17 19:14] LABS: CREATININE 0.8 mg/dL (0.55-1.3); SGOT/AST 20 U/L (15-37); SGPT/ALT 25 U/L (13-61)
[2022-07-17 19:15] LABS: BILIRUBIN,TOTAL 0.3 mg/dL (0.2-1)
[2022-07-17 19:16] LABS: ALK PHOS 70 U/L (45-117); TOT PROT 7.3 g/dl (6.4-8.2)
[2022-07-17 19:58] VITALS: BP 108/60; PULSE 64
== END 2022-07-17 22:08 | disposition home or self-care (01) ==
LOC: JER 16:50
DX: R07.9 Chest pain, unspecified (principal)
CPT/HCPCS: 36415; 71046-TC-FY; 80053; 84484; 84702; 85025; 93005; 93010; 99285-25

== ENCOUNTER 2023-06-12 20:34 | Emergency (ER) | payer OTHER ==
[2023-06-12 20:39] VITALS: BP 129/86; PULSE 102; RESP 20; TEMP 99.1; BMI 35.2
[2023-06-12] MEDS ORDERED: KETOROLAC TROMETHAMINE 30 MG/1 ML VIAL IM ONE (21:31)
[2023-06-12] MEDS ORDERED: ACETAMINOPHEN 500 MG TABLET (FP) PO ONE (21:31)
[2023-06-12] MEDS ORDERED: ACETAMINOPHEN 500 MG TABLET (FP) ONE (21:34)
[2023-06-12] MEDS ORDERED: KETOROLAC TROMETHAMINE 30 MG/1 ML VIAL ONE (21:34)
== END 2023-06-12 22:54 | disposition home or self-care (01) ==
LOC: JERFT 20:34
PROC: 3E0233Z Introduction of Anti-inflammatory into Muscle, Percutaneous Approach (ICD-10-PCS; principal; 2023-06-12)
DX: R07.0 Pain in throat (principal); M79.10 Myalgia, unspecified site; R50.9 Fever, unspecified; R53.81 Other malaise; Z20.822 Contact with and (suspected) exposure to COVID-19
CPT/HCPCS: 0241U-QW; 99284-25

== ENCOUNTER 2023-08-19 16:19 | Emergency (ER) | payer OTHER ==
[2023-08-19 16:33] VITALS: BP 123/71; PULSE 74; RESP 20; TEMP 97.8; BMI 55.0
[2023-08-19 17:25] LABS: BASO % 1.8 % (0-2.0); EOS % 1.6 % (0-4.5); HEMATOCRIT 35.5 % (32.4-45.2); HEMOGLOBIN 11.5 GM/dL (10.7-15.3); LYMPH % 39.8 % (8-40); MCHC 32.5 g/dl (32.0-36.0); MEAN CELL VOLUME 70.8 fl (80-96); MEAN PLT VOLUME 8.9 fl (7.5-11.1); MONO % 6.7 % (3.8-10.2); NEUT % 50.1 % (42.8-82.8); PLATELET COUNT 245 10^3/uL (134-434); RBC 5.02 M/mm3 (3.60-5.2); RDW 16.3 % (11.6-15.6); WHITE BLOOD COUNT 4.8 K/mm3 (4.0-10.0)
[2023-08-19] MEDS ORDERED: ACETAMINOPHEN 500 MG TABLET (FP) ONE (17:33)
[2023-08-19 17:34] LABS: POTASSIUM 3.9 mmol/L (3.5-5.1)
[2023-08-19] MEDS: ACETAMINOPHEN 500 MG TABLET (FP) PO ONE (17:36)
[2023-08-19 17:37] LABS: ALBUMIN 3.5 g/dl (3.4-5.0); BLOOD UREA NITROGEN 11.5 mg/dL (7-18)
[2023-08-19 17:40] LABS: CREATININE 0.9 mg/dL (0.55-1.3)
[2023-08-19 17:41] LABS: BILIRUBIN,TOTAL 0.2 mg/dL (0.2-1); TOT PROT 7.3 g/dl (6.4-8.2)
== END 2023-08-19 19:30 | disposition home or self-care (01) ==
LOC: JER 16:19
DX: N92.1 Excessive and frequent menstruation with irregular cycle (principal); D25.9 Leiomyoma of uterus, unspecified; R42 Dizziness and giddiness
CPT/HCPCS: 36415; 76830-TC; 80053; 85025; 86850; 86900; 86901; 99284-25

== ENCOUNTER 2024-02-18 01:12 | Emergency (ER) | payer SELFPAY ==
[2024-02-18 01:23] VITALS: RESP 18; BMI 36.6
[2024-02-18] MEDS ORDERED: ACETAMINOPHEN INJECTION 100 ML ONE (02:11)
[2024-02-18] MEDS ORDERED: LIDOCAINE 4% PATCH TP ONE (02:12)
[2024-02-18] MEDS: LIDOCAINE 4% PATCH TP ONE (02:19)
[2024-02-18] MEDS: ACETAMINOPHEN 1000 MG/100 ML BAG IVPB ONE (02:19)
[2024-02-18] MEDS: SODIUM CHLORIDE 0.9% 500 ML INFUS.BAG IV ONE (02:19)
[2024-02-18 02:33] LABS: BASO % 1.3 % (0-2.0); EOS % 1.4 % (0-4.5); HEMATOCRIT 35.6 % (32.4-45.2); HEMOGLOBIN 11.4 GM/dL (10.7-15.3); LYMPH % 54.8 % (8-40); MCH 22.9 pg (25.7-33.7); MCHC 32.1 g/dl (32.0-36.0); MEAN CELL VOLUME 71.3 fl (80-96); NEUT % 36.5 % (42.8-82.8); PLATELET COUNT 289 10^3/uL (134-434); RBC 4.99 M/mm3 (3.60-5.2); RDW 17.2 % (11.6-15.6)
[2024-02-18 02:35] LABS: HCG,QUALITATIVE URINE Negative; INR 0.96 (0.83-1.09); PROTHROMBIN TIME (PATIENT) 10.9 SEC (9.7-13.0)
[2024-02-18 02:37] LABS: ACTIVATED PTT 29.2 SECONDS (25.2-36.5)
[2024-02-18 02:46] LABS: CALCIUM 8.8 mg/dL (8.5-10.1); EPI CELLS 12 /uL (0-25.1); HYALINE CASTS 0 /uL (0-3.1); PH,URINE 5.5 (5.0-8.0); URINE APPEARANCE CLEAR; URINE BACTERIA 95 /uL (0-1359); URINE BILIRUBIN NEGATIVE (NEGATIVE); URINE COLOR ORANGE; URINE GLUCOSE (UA) NEGATIVE (NEGATIVE); URINE KETONE NEGATIVE (NEGATIVE); URINE LEUK ESTERASE NEGATIVE (NEGATIVE); URINE NITRITE NEGATIVE (NEGATIVE); URINE PROTEIN 1+ (NEGATIVE); URINE UROBILINOGEN 0.2 mg/dL (0.2-1.0); URINE WBC 25 /uL (0-25.8)
[2024-02-18 02:47] LABS: ALBUMIN 3.7 g/dl (3.4-5.0); BLOOD UREA NITROGEN 10.3 mg/dL (7-18)
[2024-02-18 02:50] LABS: CREATININE 0.9 mg/dL (0.55-1.3)
[2024-02-18 02:52] LABS: BILIRUBIN,TOTAL 0.2 mg/dL (0.2-1); TOT PROT 7.4 g/dl (6.4-8.2)
[2024-02-18 04:07] LABS: HEMOGLOBIN 10.1 GM/dL (10.7-15.3)
[2024-02-18 04:18] LABS: BASO % 0.3 % (0-2.0); EOS % 1.5 % (0-4.5); LYMPH % 55.4 % (8-40); MCHC 32.5 g/dl (32.0-36.0); MEAN CELL VOLUME 70.8 fl (80-96); MONO % 6.3 % (3.8-10.2); NEUT % 36.5 % (42.8-82.8); PLATELET COUNT 220 10^3/uL (134-434); RBC 4.38 M/mm3 (3.60-5.2); RDW 17.2 % (11.6-15.6); WHITE BLOOD COUNT 4.6 K/mm3 (4.0-10.0)
[2024-02-18 06:41] VITALS: BP 121/82; PULSE 61; TEMP 98.1
[2024-02-18 08:30] LABS: URINE RBC 863 /uL (0-23.9); YEAST NONE SEEN (NEGATIVE)
[2024-02-18] MEDS ORDERED: LIDOCAINE PATCH REMOVAL MC ONE (14:00)
== END 2024-02-18 06:48 | disposition home or self-care (01) ==
LOC: JER 01:12
PROC: 3E033NZ Introduction of Analgesics, Hypnotics, Sedatives into Peripheral Vein, Percutaneous Approach (ICD-10-PCS; principal; 2024-02-18)
DX: D25.9 Leiomyoma of uterus, unspecified (principal); D64.9 Anemia, unspecified; N93.9 Abnormal uterine and vaginal bleeding, unspecified; R42 Dizziness and giddiness; R14.0 Abdominal distension (gaseous)
CPT/HCPCS: 36415; 71046-TC-FY; 80053; 81003; 84484; 84703; 85025; 85610; 85730; 86850; 86900; 86901; 87086; 93005; 93010; 99285-25; J0131

== ENCOUNTER 2024-09-02 05:16 | Day surgery (SDC) | payer OTHER ==
[2024-09-02] MEDS ORDERED: PHENAZOPYRIDINE HCL 100 MG TABLET (FP) ONE (06:41)
[2024-09-02] MEDS: PHENAZOPYRIDINE HCL 100 MG TABLET (FP) PO ONE (06:46)
[2024-09-02] MEDS ORDERED: HYDROmorphone HCl 2 MG/ML VIAL ONE (07:36)
[2024-09-02] MEDS ORDERED: MIDAZOLAM HCL 2 MG/2 ML SINGLE DOSE VIAL ONE (07:36)
[2024-09-02] MEDS ORDERED: DEXAMETHASONE SOD PHOSPHATE 4 MG/1 ML VIAL ONE (07:42)
[2024-09-02] MEDS ORDERED: ROCURONIUM BROMIDE 50 MG/5 ML SYRINGE ONE ×2 (07:42→09:08)
[2024-09-02] MEDS ORDERED: ONDANSETRON 4 MG/2 ML VIAL ONE (07:42)
[2024-09-02] MEDS ORDERED: PROPOFOL 40 ML ONE (07:42)
[2024-09-02] MEDS ORDERED: SEVOFLURANE 250 ML BTL ONE (07:43)
[2024-09-02] MEDS ORDERED: ACETAMINOPHEN INJECTION 100 ML ONE (07:43)
[2024-09-02] MEDS ORDERED: TRANEXAMIC ACID 1000 MG/10 ML VIAL ONE (07:43)
[2024-09-02] MEDS ORDERED: LIDOCAINE HCL 2% 100 MG/5 ML DISP.SYRIN ONE (07:45)
[2024-09-02] MEDS ORDERED: ceFAZolin SODIUM 1 GM VIAL ONE (07:57)
[2024-09-02] MEDS: ceFAZolin 2 GRAM PREMIX BAG IVPB ONE (08:01)
[2024-09-02] MEDS ORDERED: SUGAMMADEX SODIUM 200 MG/2 ML VIAL ONE (09:54)
[2024-09-02] MEDS ORDERED: KETOROLAC TROMETHAMINE 30 MG/1 ML VIAL ONE (09:55)
[2024-09-02] MEDS ORDERED: oxyCODONE HCL 5 MG TABLET PO PRN ×4 (10:57→11:47)
[2024-09-02] MEDS ORDERED: PROMETHAZINE HCL 25 MG/1 ML VIAL IVPB PRN (10:57)
[2024-09-02] MEDS ORDERED: ONDANSETRON 4 MG/2 ML VIAL IVPUSH PRN ×2 (10:57→11:36)
[2024-09-02] MEDS: CEFAZOLIN 2 GM in DEXTROSE 5%-WATER - 100 ML IVPB ONE (11:28)
[2024-09-02] MEDS ORDERED: BISACODYL 5 MG TABLET.DR (FP) PO PRN (11:36)
[2024-09-02 13:44] VITALS: RESP 18
[2024-09-02] MEDS ORDERED: ACETAMINOPHEN 1000 MG/100 ML BAG IVPB PRN (15:00)
[2024-09-02] MEDS: CEFAZOLIN 1 GM in DEXTROSE 5%-WATER - 50 ML IVPB SCH (16:35)
[2024-09-02] MEDS: CEFAZOLIN 1 GM/D5W 1 GM/50 ML BAG IVPB SCH (17:05)
[2024-09-02] MEDS: ACETAMINOPHEN 1000 MG/100 ML BAG IVPB SCH (17:42)
[2024-09-02] MEDS: IBUPROFEN 800 MG/8 ML IJ IVPB SCH (18:43)
[2024-09-02 21:16] LABS: POTASSIUM 4.5 mmol/L (3.5-5.1)
[2024-09-02 21:18] LABS: BLOOD UREA NITROGEN 11.6 mg/dL (7-18); CALCIUM 8.8 mg/dL (8.5-10.1)
[2024-09-02 21:22] LABS: CREATININE 0.9 mg/dL (0.55-1.3)
[2024-09-02 21:55] LABS: HEMATOCRIT 34.9 % (34.1-44.9); HEMOGLOBIN 10.7 g/dL (11.2-15.7); MCHC 30.7 g/dl (32.2-35.5); PLATELET COUNT 235 x10^3/uL (182-369); RDW 17.5 % (12.2-17.1)
[2024-09-02] MEDS: DOCUSATE SODIUM 100 MG CAPSULE (FP) PO PRN (23:09)
[2024-09-02] MEDS: SIMETHICONE 80 MG TAB.CHEW (FP) PO PRN (23:09)
[2024-09-02] MEDS: LACTATED RINGERS SOLUTION 1,000 ML IV SCH (23:31)
[2024-09-03 07:10] LABS: HEMATOCRIT 32.2 % (34.1-44.9); HEMOGLOBIN 10.2 g/dL (11.2-15.7); MCHC 31.7 g/dl (32.2-35.5); MEAN CELL VOLUME 75.2 fl (79.4-94.8); MEAN PLT VOLUME 11.7 fl (9.4-12.3); PLATELET COUNT 223 x10^3/uL (182-369); RDW 17.4 % (12.2-17.1)
[2024-09-03 07:17] LABS: POTASSIUM 3.7 mmol/L (3.5-5.1)
[2024-09-03 07:18] LABS: CALCIUM 8.6 mg/dL (8.5-10.1)
[2024-09-03 07:19] LABS: BLOOD UREA NITROGEN 9.2 mg/dL (7-18)
[2024-09-03 07:22] LABS: CREATININE 0.7 mg/dL (0.55-1.3)
[2024-09-03] MEDS: ASCORBIC ACID 500 MG TABLET (FP) PO SCH (09:19)
[2024-09-03] MEDS: ENOXAPARIN NA (PORCINE) 40 MG/0.4 ML DISP.SYRIN SQ SCH (09:19)
[2024-09-03] MEDS: IBUPROFEN 600 MG TABLET (FP) PO PRN (11:25)
[2024-09-03 15:16] VITALS: BP 110/68; PULSE 75; TEMP 98.5
[2024-09-03] MEDS: ACETAMINOPHEN 500 MG TABLET (FP) PO PRN (16:04)
== END 2024-09-03 16:15 | disposition home or self-care (01) ==
LOC: JASUSAT 05:16 → J3W 13:44 → JASUSAT 09-03 16:15
PROVIDERS: ATTEND Obstetrics & Gynecology
PROC: 0UT9FZZ Resection of Uterus, Via Natural or Artificial Opening With Percutaneous Endoscopic Assistance (ICD-10-PCS; 2024-09-02)
PROC: 0DNW0ZZ Release Peritoneum, Open Approach (ICD-10-PCS; 2024-09-02)
PROC: 0UT94ZZ Resection of Uterus, Percutaneous Endoscopic Approach (ICD-10-PCS; principal; 2024-09-02 07:45)
PROC: 0UT74ZZ Resection of Bilateral Fallopian Tubes, Percutaneous Endoscopic Approach (ICD-10-PCS; 2024-09-02 07:45)
PROC: 0UT14ZZ Resection of Left Ovary, Percutaneous Endoscopic Approach (ICD-10-PCS; 2024-09-02 07:45)
DX: D25.9 Leiomyoma of uterus, unspecified (principal); N83.8 Other noninflammatory disorders of ovary, fallopian tube and broad ligament; N70.11 Chronic salpingitis
CPT/HCPCS: 58571; 58662; S2900; 36415; 80048; 81025; 85027; 86850; 86900; 86901; 88305-TC; 88307-TC; 94760; J0131